=== PATIENT | female | born 1995 | race Caucasian/White ===

== ENCOUNTER 2022-07-27 20:09 | Observation (INO) | payer OTHER ==
[~2022-07-27] VITALS: Ht 172.7 cm; Wt 79.4 kg
[2022-07-27 20:12] VITALS: BP 155/109
--- NOTE | 2022-07-27 20:13 | NUR ---
Dr. Hernandez examining patient.
[2022-07-27] MEDS ORDERED: LORazepam 2 MG/ML VIAL IM ONE (20:15)
--- NOTE | 2022-07-27 21:15 | NUR ---
Dr. Hernandez examining patient.
[2022-07-27] MEDS ORDERED: levETIRAcetam 500 MG in NACL 0.9% 100 ML IV ONE (21:25)
[2022-07-27 21:39] LABS: BASOPHILS % (AUTO) 0.1 % (0.0-2.0); EOSINOPHILS # (AUTO) 0.4 K/uL (0-0.4); EOSINOPHILS % (AUTO) 2.4 % (0.0-4.0); HEMATOCRIT 43.9 % (36-48); HEMOGLOBIN 15.2 g/dL (12.0-16.0); LYMPHOCYTES # (AUTO) 2.2 K/uL (2.5-16.5); LYMPHOCYTES % (AUTO) 13.8 % (20.5-51.1); MEAN CORPUSCULAR HEMOGLOBIN 31 pg (27-31); MEAN CORPUSCULAR HGB CONC 35 g/dL (33-37); MEAN CORPUSCULAR VOLUME 88.4 fL (80-94); MONOCYTES # (AUTO) 0.7 K/uL (0.8-1.0); MONOCYTES % (AUTO) 4.5 % (1.7-9.3); NEUTROPHILS # (AUTO) 12.8 K/uL (1.8-7.7); NEUTROPHILS % (AUTO) 79.2 % (42.2-75.2); PLATELET COUNT (AUTO) 351 K/uL (140-450); RED BLOOD CELL COUNT(AUTO) 4.97 MIL/uL (4.20-5.40); RED CELL DISTRIBUTION WIDTH 12.9 % (11.6-13.7); WHITE BLOOD COUNT (AUTO) 16.1 K/uL (4.8-10.8)
--- NOTE | 2022-07-27 21:41 | NUR ---
PT TAKEN TO BED 6
[2022-07-27 21:54] LABS: ALBUMIN 3.7 g/dL (3.4-5.0); ANION GAP 13.5 (8-16); CREATININE 0.8 mg/dL (0.6-1.3); POTASSIUM 3.5 mmol/L (3.5-5.1); TOTAL BILIRUBIN 0.3 mg/dL (0.0-1.0)
--- NOTE | 2022-07-27 22:00 | NUR ---
RECEIVED IN BED 6 AFTER BEING BIBA FROM HOME WITH C/O SZ TODAY AND ANXIETY. PT DENIES H/O SEIZURES PMHx: Anxiety and Depression (Duloxetine, Buspirone, propranolol)
--- NOTE | 2022-07-27 22:12 | NUR ---
TO CT VIA [facility]
[2022-07-27] MEDS ORDERED: levETIRAcetam 100 MG/ML VIAL IV ONE (22:57)
[2022-07-27] MEDS ORDERED: POTASSIUM CHLORIDE 10 MEQ TABER PO PRN (23:45)
[2022-07-27] MEDS ORDERED: KCL 20 MEQ/WATER INJ PREMIX 200 ML IV PRN (23:45)
[2022-07-27] MEDS ORDERED: ACETAMINOPHEN 325 MG TAB PO PRN (23:45)
[2022-07-27] MEDS ORDERED: MAG SULF 2000 MG/WATER PREMIX 50 ML IV PRN (23:45)
[2022-07-27] MEDS ORDERED: ONDANSETRON 4 MG/2 ML VIAL IVP PRN (23:45)
[2022-07-27] MEDS ORDERED: LORazepam 1 MG TAB PO PRN (23:45)
[2022-07-27] MEDS ORDERED: NACL 0.9% 1,000 ML IV SCH (23:45)
[2022-07-27] MEDS ORDERED: MAGNESIUM OXIDE 400 MG TAB PO PRN (23:45)
--- NOTE | 2022-07-28 00:02 | NUR ---
SAMM SWAB OBTAINED AND SENT TO LAB WITH UA
[2022-07-28 00:17] LABS: APPEARANCE,URINE HAZY (CLEAR); BILIRUBIN,URINE NEGATIVE (NEGATIVE); BLOOD, URINE NEGATIVE (NEGATIVE); COLOR,URINE YELLOW (YELLOW); LEUKOCYTE ESTERASE ,URINE NEGATIVE (NEGATIVE); NITRITE, URINE NEGATIVE (NEGATIVE); UGLUCOSE NEGATIVE (NEGATIVE)
[2022-07-28 00:34] LABS: BARBITURATE, URINE NEGATIVE ng/ml (NEG <=200); BENZODIAZEPINE, URINE POSITIVE ng/mL (NEG <=200); CANNABINOID, URINE POSITIVE ng/mL (NEG <=50); COCAINE, URINE NEGATIVE ng/mL (NEG <=300); OPIATE, URINE NEGATIVE ng/mL (NEG <=2000); PHENCYCLIDINE SCREEN,URINE NEGATIVE ng/mL (NEG <=25)
[2022-07-28 00:36] LABS: RBC,URINE 0-5 /HPF (0-5); URINE AMORPHOUS URATE 1+ /HPF (None Seen); WBC,URINE 0-5 /HPF (0-5)
--- NOTE | 2022-07-28 02:00 | NUR ---
RESTING WITH EYES CLOSED. RESPIRATIONS REGULAR AND UNLABORED
--- NOTE | 2022-07-28 05:00 | NUR ---
AWAKE, AMBULATING AT BEDSIDE "I WANT TO LEAVE'. PT IS ANXIOUS. CALL TO PTS PARTNER, WHO WILL COME TO SEE PT
--- NOTE | 2022-07-28 06:00 | NUR ---
PTS PARTNER HERE AND AT BEDSIDE. REASSURANCE GIVEN TO PATIENT. PTS PARTNER SAYING THAT PT RAN OUT OF PSYCH MEDS 3 DAYS AGO AND HAS NOT BEEN FEELING WELL SINCE. PT MOVED TO THIS AREA RECENTLY AND HAS NOT REESTABLISHED MEDICAL AND PSYCHIATRIC CARE SO PT HAS RUN OUT OF ALL MEDS
[2022-07-28] MEDS ORDERED: PREG150C PO (06:46)
[2022-07-28] MEDS ORDERED: PANT40EC PO (06:46)
[2022-07-28] MEDS ORDERED: DULO60EC1 PO (06:46)
[2022-07-28 07:10] LABS: BASOPHILS % (AUTO) 0.2 % (0.0-2.0); EOSINOPHILS # (AUTO) 0.1 K/uL (0-0.4); EOSINOPHILS % (AUTO) 0.3 % (0.0-4.0); HEMATOCRIT 41.4 % (36-48); HEMOGLOBIN 14.6 g/dL (12.0-16.0); LYMPHOCYTES # (AUTO) 1.2 K/uL (2.5-16.5); LYMPHOCYTES % (AUTO) 6.5 % (20.5-51.1); MEAN CORPUSCULAR HEMOGLOBIN 31 pg (27-31); MEAN CORPUSCULAR HGB CONC 35 g/dL (33-37); MEAN CORPUSCULAR VOLUME 87.7 fL (80-94); MONOCYTES # (AUTO) 1.1 K/uL (0.8-1.0); MONOCYTES % (AUTO) 5.9 % (1.7-9.3); NEUTROPHILS # (AUTO) 15.5 K/uL (1.8-7.7); NEUTROPHILS % (AUTO) 87.1 % (42.2-75.2); PLATELET COUNT (AUTO) 329 K/uL (140-450); RED BLOOD CELL COUNT(AUTO) 4.72 MIL/uL (4.20-5.40); RED CELL DISTRIBUTION WIDTH 12.9 % (11.6-13.7); WHITE BLOOD COUNT (AUTO) 17.8 K/uL (4.8-10.8)
[2022-07-28 07:16] LABS: ANION GAP 13.2 (8-16); CARBON DIOXIDE 27.2 mmol/L (21-32); CREATININE 0.6 mg/dL (0.6-1.3); POTASSIUM 3.4 mmol/L (3.5-5.1)
--- NOTE | 2022-07-28 07:30 | NUR ---
REPORT RECEIVED FROM RENAE YATES. ASSUMED CARE AT THIS TIME
--- NOTE | 2022-07-28 07:35 | NUR ---
pt at rest w/ eyes closed. no visible distress. respirations even and unlabored. bed at lowest position, bed rails up x1. partner at bedside
--- NOTE | 2022-07-28 08:00 | NUR ---
pt provided w/ breakfast. "not right now". tray left at bedside
[2022-07-28] MEDS ORDERED: ENOXAPARIN 40 MG/0.4 ML SYR SUBQ SCH (09:00)
--- NOTE | 2022-07-28 09:27 | NUR ---
PATIENT HAS BEEN SCREENED AND CATEGORIZED LOW NUTRITION RISK. PATIENT WILL BE SEEN WITHIN 7 DAYS OF ADMISSION. 07/27/22-08/03/[address]
--- NOTE | 2022-07-28 09:37 | NUR ---
pt requesting to leave " i want to go home". MD BALL CONTACTED AND MADE AWARE. MD TO SEE PT
--- NOTE | 2022-07-28 10:50 | NUR ---
MD BALL AT BEDSIDE FOR EVALUATION
--- NOTE | 2022-07-28 11:13 | NUR ---
PER MD BALL, PT OK FOR D/C
--- NOTE | 2022-07-28 11:20 | NUR ---
IV removed, catheter intact and site benign. Applied folded 4x4 gauze and tape to stop bleeding.
[2022-07-28 11:25] VITALS: BP 135/68
--- NOTE | 2022-07-28 11:25 | NUR ---
Patient discharged with v/s stable. Written and verbal after care instructions given and explained. Patient alert, oriented and verbalized understanding of instructions. Ambulatory with steady gait. All questions addressed prior to discharge. ID band removed. Patient advised to follow up with PMD. Rx of LYRICA given. Patient educated on indication of medication including possible reaction and side effects. Opportunity to ask questions provided and answered. PAPER RX GIVEN
--- NOTE | 2022-07-28 13:01 | NUR ---
The patient's care was reviewed and supervised by Radha Duenas, RN, RN.
== END 2022-07-28 11:25 | disposition home or self-care (01) ==
LOC: MED 20:09 → INTOOBSV 23:43 → MTU 23:43
PROVIDERS: ADMIT Hospitalist; ATTEND Hospitalist
DX: F41.9 Anxiety disorder, unspecified (principal); Z20.822 Contact with and (suspected) exposure to COVID-19; K21.9 Gastro-esophageal reflux disease without esophagitis; E66.9 Obesity, unspecified; R00.2 Palpitations; Z79.899 Other long term (current) drug therapy
CPT/HCPCS: 36415; 70450; 80048; 80053; 80305; 81001; 83605; 83735; 85025; 87426; 96361; 96365; 96372; 99285; G0378; J1650; J1953; J2060

== ENCOUNTER 2022-11-07 10:03 | Emergency (ER) | payer OTHER ==
[~2022-11-07] VITALS: Ht 167.6 cm; Wt 90.7 kg
[~2022-11-07 10:03] MED LIST: DULO60EC1 PO; PANT40EC PO; PREG150C PO
[2022-11-07 10:10] VITALS: BP 148/110
[2022-11-07] MEDS ORDERED: MORPHINE SULFATE 4 MG/ML SYR IVP ONE (10:25)
[2022-11-07] MEDS ORDERED: ONDANSETRON 4 MG/2 ML VIAL IVP ONE (10:25)
[2022-11-07] MEDS ORDERED: NACL 0.9% 1,000 ML IV ONE ×2 (10:25→14:00)
[2022-11-07 10:58] LABS: BASOPHILS # (AUTO) 0.1 K/uL (0.00-0.22); MONOCYTES # (AUTO) 1.3 K/uL (0.8-1.0)
[2022-11-07 11:02] LABS: BASOPHILS % (AUTO) 0.4 % (0.0-2.0); EOSINOPHILS # (AUTO) 1.4 K/uL (0-0.4); EOSINOPHILS % (AUTO) 7.3 % (0.0-4.0); HEMATOCRIT 54.5 % (36-48); HEMOGLOBIN 19.3 g/dL (12.0-16.0); LYMPHOCYTES # (AUTO) 3.9 K/uL (2.5-16.5); MEAN CORPUSCULAR HEMOGLOBIN 30 pg (27-31); MEAN CORPUSCULAR HGB CONC 36 g/dL (33-37); MEAN CORPUSCULAR VOLUME 85.4 fL (80-94); MONOCYTES % (AUTO) 6.5 % (1.7-9.3); NEUTROPHILS # (AUTO) 12.9 K/uL (1.8-7.7); NEUTROPHILS % (AUTO) 65.8 % (42.2-75.2); PLATELET COUNT (AUTO) 545 K/uL (140-450); RED BLOOD CELL COUNT(AUTO) 6.38 MIL/uL (4.20-5.40); RED CELL DISTRIBUTION WIDTH 13.2 % (11.6-13.7); WHITE BLOOD COUNT (AUTO) 19.6 K/uL (4.8-10.8)
--- NOTE | 2022-11-07 11:10 | NUR ---
PT W/C ASSISTED TO BED 11.
[2022-11-07 11:17] LABS: ALBUMIN 4.7 g/dL (3.4-5.0); ANION GAP 17.7 (8-16); CARBON DIOXIDE 27.5 mmol/L (21-32); CREATININE 1.1 mg/dL (0.6-1.3); POTASSIUM 3.2 mmol/L (3.5-5.1); TOTAL BILIRUBIN 0.4 mg/dL (0.0-1.0)
--- NOTE | 2022-11-07 12:20 | NUR ---
PATIENT PRESENTS TO ED WITH ABDOMINAL PAIN . PT REPORTS N/V/D; SKIN IS PINK/WARM/DRY; AAOX4 WITH EVEN AND STEADY GAIT; LUNGS CLEAR BL; HR EVEN AND REGULAR; PT DENIES ANY FEVER, CP, SOB, OR COUGH AT THIS TIME; PATIENT STATES PAIN OF 8/10 AT THIS TIME; VSS; PATIENT POSITIONED FOR COMFORT; HOB ELEVATED; BEDRAILS UP X2; BED DOWN. ER MD MADE AWARE OF PT STATUS.
--- NOTE | 2022-11-07 14:25 | NUR ---
PATIENT ABLE TO AMBULATE INDENPENDENTLY TO THE RESTROOM, NO S/S OF ACUTE DISTRESS. PENDING URINALYSIS RESULTS. PLAN OF CARE ONGOING
[2022-11-07] MEDS ORDERED: METOCLOPRAMIDE 10 MG/2 ML INJ VIAL IVP ONE (15:15)
[2022-11-07 15:50] LABS: APPEARANCE,URINE CLEAR (CLEAR); BILIRUBIN,URINE NEGATIVE (NEGATIVE); BLOOD, URINE NEGATIVE (NEGATIVE); COLOR,URINE YELLOW (YELLOW); LEUKOCYTE ESTERASE ,URINE NEGATIVE (NEGATIVE); NITRITE, URINE NEGATIVE (NEGATIVE); UGLUCOSE NEGATIVE (NEGATIVE)
[2022-11-07 15:57] LABS: ANION GAP 13.8 (8-16); CARBON DIOXIDE 26.2 mmol/L (21-32); CREATININE 0.8 mg/dL (0.6-1.3)
[2022-11-07] MEDS ORDERED: ONDA-188 SL (16:04)
[2022-11-07] MEDS ORDERED: SODIUM PHOS / POTASSIUM PHOS 1 PKT PDR PO SCH (16:05)
[2022-11-07 16:28] VITALS: BP 136/79
--- NOTE | 2022-11-07 16:29 | NUR ---
Patient discharged with v/s stable. Written and verbal after care instructions given and explained. Patient verbalized understanding. Ambulatory with steady gait. All questions addressed prior to discharge. Advised to follow up with PMD.
== END 2022-11-07 16:28 | disposition home or self-care (01) ==
LOC: MERGE 10:03 → MED 10:03
DX: R10.84 Generalized abdominal pain (principal); R11.2 Nausea with vomiting, unspecified; R19.7 Diarrhea, unspecified
CPT/HCPCS: 36415; 74177; 76856; 80048; 80053; 81003; 83690; 84703; 85025; 96361; 96374; 96375; 99285; J2270; J2405; J2765; J7030; Q0092; Q9967; 99284

== ENCOUNTER 2023-09-29 06:30 | Emergency (ER) | payer OTHER ==
[~2023-09-29] VITALS: Ht 167.6 cm; Wt 136.1 kg
[~2023-09-29 06:30] MED LIST changes: +ONDA-188 SL
[2023-09-29 06:39] VITALS: PULSE 150; RESP 24; TEMP 97.1; O2SAT 99
[2023-09-29] MEDS ORDERED: LORazepam 2 MG/ML VIAL IVP ONE (06:45)
[2023-09-29] MEDS ORDERED: NACL 0.9% 1,000 ML IV ONE ×2 (06:45→08:45)
[2023-09-29 07:09] LABS: BASOPHILS # (AUTO) 0.1 K/uL (0.00-0.22); BASOPHILS % (AUTO) 0.5 % (0.0-2.0); EOSINOPHILS # (AUTO) 0.4 K/uL (0-0.4); EOSINOPHILS % (AUTO) 2.7 % (0.0-4.0); HEMATOCRIT 43.7 % (36-48); HEMOGLOBIN 14.6 g/dL (12.0-16.0); LYMPHOCYTES # (AUTO) 4.1 K/uL (2.5-16.5); LYMPHOCYTES % (AUTO) 24.3 % (20.5-51.1); MEAN CORPUSCULAR HEMOGLOBIN 30 pg (27-31); MEAN CORPUSCULAR HGB CONC 34 g/dL (33-37); MEAN CORPUSCULAR VOLUME 90.1 fL (80-94); MONOCYTES % (AUTO) 5.7 % (1.7-9.3); NEUTROPHILS # (AUTO) 11.1 K/uL (1.8-7.7); NEUTROPHILS % (AUTO) 66.8 % (42.2-75.2); PLATELET COUNT (AUTO) 413 K/uL (140-450); RED BLOOD CELL COUNT(AUTO) 4.85 MIL/uL (4.20-5.40); RED CELL DISTRIBUTION WIDTH 13.6 % (11.6-13.7); WHITE BLOOD COUNT (AUTO) 16.7 K/uL (4.8-10.8)
[2023-09-29 07:30] VITALS: O2SAT 100
[2023-09-29 07:41] LABS: ALANINE AMINOTRANSFERASE 39 U/L (12-78); ALBUMIN 3.7 g/dL (3.4-5.0); ALKALINE PHOSPHATASE 98 U/L (50-136); ANION GAP 24.1 (8-16); ASPARTATE AMINOTRANSFERASE 23 U/L (15-37); CALCIUM 8.4 mg/dL (8.5-10.1); CARBON DIOXIDE 16.9 mmol/L (21-32); CHLORIDE 102 mmol/L (98-107); FREE T4 (FREE THYROXINE) 1.01 ng/dL (0.76-1.46); GFR ARICAN-AMERICAN 84 mL/min (>90); GFR NON ARICAN-AMERICAN 69 mL/min (>90); GLUCOSE 227 mg/dL (74-106); LIPASE 33 U/L (16-77); SODIUM SERUM 140 mmol/L (136-145); THYROID STIMULATING HORMONE 1.15 uIU/mL (0.34-3.74); TOTAL BILIRUBIN 0.3 mg/dL (0.0-1.0); TOTAL PROTEIN, SERUM 7.6 g/dL (6.4-8.2); UREA NITROGEN, BLOOD 2 mg/dL (7-18)
[2023-09-29] MEDS ORDERED: POTASSIUM CHLORIDE 20% 40 MEQ/15 ML UDC PO ONE (08:15)
[2023-09-29 09:16] LABS: ANION GAP 12.7 (8-16); CALCIUM 8.3 mg/dL (8.5-10.1); CARBON DIOXIDE 24.3 mmol/L (21-32); CREATININE 0.7 mg/dL (0.6-1.3)
[2023-09-29] MEDS ORDERED: LORazepam 1 MG TAB ONE (09:59)
[2023-09-29] MEDS ORDERED: LORazepam 1 MG TAB PO ONE (10:00)
[2023-09-29] MEDS ORDERED: KEP500 PO (10:04)
[2023-09-29 10:42] VITALS: BP 133/70; PULSE 73; RESP 18; TEMP 97.1; O2SAT 99
== END 2023-09-29 10:44 | disposition home or self-care (01) ==
LOC: MED 06:30
DX: R56.9 Unspecified convulsions (principal); R41.82 Altered mental status, unspecified; R73.9 Hyperglycemia, unspecified; E87.20 Acidosis, unspecified; Z88.8 Allergy status to other drugs, medicaments and biological substances; Z79.899 Other long term (current) drug therapy
CPT/HCPCS: 36415; 70450; 71045; 80048; 80053; 83690; 84439; 84443; 84484; 84703; 85025; 93005; 96361; 96374; 99291; J2060; J7030